=== PATIENT | male | born 1940 | race Caucasian/White ===

== ENCOUNTER 2023-05-04 12:53 | Inpatient (IN) ==
[2023-05-04 13:04] VITALS: BMI 26.4
[2023-05-04] MEDS ORDERED: ATIVAN IVP PRN (13:06)
[2023-05-04] MEDS ORDERED: ZOFRAN 4 MG/2 ML IVP PRN (13:06)
[2023-05-04] MEDS ORDERED: TRANSDERM-SCOP 1.5 MG PATCH TD PRN (13:16)
[2023-05-04 13:29] LABS: HEMATOCRIT 19.2 % (42.0-52.0); MEAN CORPUSCULAR HEMOGLOBIN 28.4 pg (27.0-31.0); MEAN CORPUSCULAR HGB CONC 31.3 (31.8-35.4); PLATELET COUNT 257 10^3/uL (140-440); RDW COEFFICIENT OF VARIATION 18.5 % (11.6-14.8); RED BLOOD COUNT 2.11 10^6/ul (4.70-6.10); WHITE BLOOD COUNT 16.59 K/ul (4.2-10.2)
[2023-05-04 13:38] LABS: ANISOCYTOSIS NOT PRESENT (NOT PRESENT)
[2023-05-04 13:40] LABS: ALBUMIN 2.74 g/dL (3.5-5.0); ALKALINE PHOSPHATASE 73.6 U/L (56-119); ASPARTATE AMINO TRANSFERASE 24.4 U/L (17-59); BILIRUBIN,TOTAL 0.37 mg/dL (0.2-1.3); CALCIUM 7.45 mg/dL (8.4-10.2); CARBON DIOXIDE 15.8 mmol/L (22-30.0); CHLORIDE 103.9 mmol/L (98-107); CREATININE 2.87 mg/dL (0.60-1.10); GLUCOSE 214.3 mg/dL (74-106); POTASSIUM 4.74 mmol/L (3.5-5.1); SODIUM 129.5 mmol/L (134.5-145); TOTAL PROTEIN 5.2 g/dL (6.3-8.2)
[2023-05-04] MEDS: MORPHINE 2 MG/ML SYRINGE IVP PRN ×3 (13:45→18:56)
[2023-05-04 14:13] LABS: BLOOD UREA NITROGEN 107.3 mg/dL (9-20)
--- NOTE | 2023-05-04 15:23 | PCM ---
Date of Service Date Seen by Provider: 05/04/23 Time Seen by Provider: 14:00 Admit Day/Time Admission Date: 05/04/23 Admission Time: 13:00 Reason for Admission Chief Complaint: FAILURE TO THRIVE,PROSTATE CANCER WITH LUNG AND Hospital Provider Hospital Provider: DIAMOND MOSES, [facility] Primary Care Physician Primary Care Physician: PIOTR VARGHESE History of Present Illness History of Present Illness: 82 yo male comes to [facility] from [facility] for impaired balance/mobility due to metastatic cancer. Patient was admitted on 04/20/23 for new onset afib and pneumonia. He was placed on a cardizem drip in the ER and later admitted. He was placed on cefepime for pneumonia. CT scan showed left perihilar mass measure 7.3 x 4.2 cm and bilateral pleural effusions. A thoracentesis was completed on 04/25 with approximately 900mL of straw colored fluid removed. Pathology was negative. Pulmonology states patient would benefit from bronchoscopy but too high risk. BNP was elevated at 2013 and he was started on IV lasix then transitioned to PO. Echo was completed as well and showed grade 1 diastolic dysfunction with EF of 50%. Prednisone taper was also initiated and completed. Cardizem gtt was weaned and patient started on PO and eliquis. Dr. Weiss is his primary oncologist and recommended to complete course of treatment and discharge to rehab with plans for follow-up. Dr. Weiss/Dr. Mchugh stated that patient was not appropriate to start chemo on at this time and he needed to get stronger first. Thus bringing him to [facility] for Swing[facility]. He has remained weak and tired throughout that stay and worked with PT/OT minimally. From 05/02 to today 04/24, patient continued to decline. Initially was refusing to sit on edge of bed or sit in bed. Has continued to refuse any activity with nursing staff throughout the weekend. He has also began to refuse food and drink. 05/03 patient was experiencing sense of impending doom and requested something to relax. Was given IM ativan 1mg x 1 which helped. Discussed situation extensively with family and they wish for patient to be comfortable and for hospice to be consulted. Patient was admitted to inpatient around 1300. CBC and CMP completed per family request. Hemoglobin low at 6 and BUN and Creatinine critical high. Family does not wish for any intervention. [facility] Medical History CHF (congestive heart failure) I50.9 - Heart failure, unspecified (ICD-10) COPD (chronic obstructive pulmonary disease) J44.9 - Chronic obstructive pulmonary disease, unspecified (ICD-10) Diabetes E11.9 - Type 2 diabetes mellitus without complications (ICD-10) DVT (deep venous thrombosis) I82.409 - Acute embolism and thrombosis of unspecified deep veins of unspecified lower extremity (ICD-10) Pleural effusion J90 - Pleural effusion, not elsewhere classified (ICD-10) Dyspnea R06.00 - Dyspnea, unspecified (ICD-10) Hypertension I10 - Essential (primary) hypertension (ICD-10) Metastasis to lung C78.00 - Secondary malignant neoplasm of unspecified lung (ICD-10) Hypocalcemia E83.51 - Hypocalcemia (ICD-10) Heart attack I21.9 - ST elevation (STEMI) myocardial infarction of unspecified site (ICD- 10) Prostate CA C61 - Malignant neoplasm of prostate (ICD-10) Surgical History History of prostate surgery Z98.890 - Other specified postprocedural states (ICD-10) Family History Mother Breast cancer Social History Smoking and tobacco status: Former smoker Alcohol intake: never Allergies Allergies Allergy/AdvReac Type Severity Reaction Status Date / Time No Known Allergies Allergy Verified 03/29/23 16:11 Current Medications Home Medications rosuvastatin 10 mg tablet 10 mg PO DAILY 12/01/21 [History Confirmed 05/04/23 Last Taken 11/30/21] diltiazem HCl 120 mg capsule,extended release 24 hr (Cardizem CD) 120 mg PO DAILY #30 caps 03/29/23 [Rx Confirmed 05/04/23 Last Taken Unknown] abiraterone 250 mg tablet (Zytiga) 1,000 mg PO QAM 05/01/23 [History Confirmed 05/04/23 Last Taken Unknown] alogliptin 12.5 mg tablet 25 mg PO QAM 05/01/23 [History Confirmed 05/04/23 Last Taken Unknown] apixaban 5 mg tablet (Eliquis) 5 mg PO BID 05/01/23 [History Confirmed 05/04/23 Last Taken Unknown] aspirin 81 mg tablet,delayed release (Adult Low Dose Aspirin) 81 mg PO DAILY 05/01/23 [History Confirmed 05/04/23 Last Taken Unknown] budesonide 160 mcg-glycopyr 9 mcg-formot 4.8 mcg/actuation HFA inhaler (Breztri Aerosphere) 2 inh inhalation BID 05/01/23 [History Confirmed 05/04/23 Last Taken Unknown] calcium carbonate 500 mg calcium (1,250 mg) chewable tablet 500 mg PO TID PRN heartburn 05/01/23 [History Confirmed 05/04/23 Last Taken Unknown] ferrous sulfate 325 mg (65 mg iron) tablet (Feosol) 325 mg PO DAILY 05/01/23 [History Confirmed 05/04/23 Last Taken Unknown] furosemide 20 mg tablet (Lasix) 20 mg PO DAILY 05/01/23 [History Confirmed 05/04/23 Last Taken Unknown] guaifenesin 600 mg tablet, extended release 12 hr (Mucinex) 600 mg PO BID 05/01/23 [History Confirmed 05/04/23 Last Taken Unknown] megestrol 400 mg/10 mL (40 mg/mL) oral suspension 400 mg PO DAILY 05/01/23 [History Confirmed 05/04/23 Last Taken Unknown] melatonin 5 mg sublingual BEDTIME PRN insomnia 05/01/23 [History Confirmed 05/04/23 Last Taken Unknown] metoprolol succinate 50 mg tablet,extended release 24 hr (Toprol XL) 50 mg PO DAILY 05/01/23 [History Confirmed 05/04/23 Last Taken Unknown] polyethylene glycol 3350 17 gram oral powder packet 17 g PO DAILY PRN constipation 05/01/23 [History Confirmed 05/04/23 Last Taken Unknown] prednisone 5 mg tablet See Rx Instructions PO .COMPLEX 05/01/23 [History Confirmed 05/04/23 Last Taken Unknown] hydrocodone 5 mg-acetaminophen 325 mg tablet 1 - 2 tab PO Q6H PRN pain 05/02/23 [History Confirmed 05/04/23 Last Taken Unknown] Home Lorazepam (Lorazepam Inj 2 Mg/Ml Disp.Syringe) 2 mg IVP Q2H PRN PRN Reason: Anxiety Morphine Sulfate (Morphine Sulfate 2 Mg/Ml Syringe) 2 mg IVP Q2H PRN PRN Reason: Pain Last Admin: 05/04/23 13:45 Dose: 2 mg Ondansetron HCl (Ondansetron Hcl/Pf 4 Mg/2 Ml Sdv) 4 mg IVP Q6H PRN PRN Reason: Nausea / Vomiting Scopolamine HBr (Scopolamine Hydrobromide 1.5 Mg Patch.Td72) 1 patch TD Q72H PRN PRN Reason: Respiratory secretions Review of Systems Constitutional: Reports Fatigue and Weakness Head: Reports Normocephalic Eyes: Reports No symptoms Ears: Reports No symptoms Nose: Reports No symptoms Mouth: Reports No symptoms Throat: Reports No symptoms Cardiovascular: Reports No symptoms Respiratory: Reports No symptoms Gastrointestinal: Reports No symptoms Genitourinary: Reports No Symptoms Musculoskeletal: Reports No symptoms Endocrine: Reports No symptoms Hematology: Reports No symptoms Immunology: Reports No symptoms Neurological: Reports Weakness Psychiatric: Reports No symptoms Physical examination Most Recent Vital Signs: Most Recent Vital Signs Temperature 97.6 F 05/04/23 12:56 Temperature Source Temporal Artery Scan 05/04/23 12:56 Pulse Rate 85 05/04/23 12:56 Respiratory Rate 24 H 05/04/23 12:56 Blood Pressure Left Arm 111/46 05/04/23 12:56 Blood Pressure Position Supine 05/04/23 12:56 O2 Sat by Pulse Oximetry 94 L 05/04/23 12:56 Oxygen Delivery Method Nasal Cannula 05/04/23 12:56 Oxygen Flow Rate 3 05/04/23 12:56 Height 6 ft 2 in 05/04/23 12:56 Weight 205 lb 8 oz 05/04/23 12:56 Appearance: Positive Ill-Appearing and Thin HEENT: Positive Normocephalic, PERRLA and Other (dry mucosa) Neck: Positive Supple and Midline Trachea Chest/Lungs: Positive Symmetrical With Equal Breath Sounds, Clear to Auscultation Bilaterally and Good Air Movement all 4 Lung [place] Heart: Positive RRR, Pulses Normal, No S3 Auscultated and No S4 Auscultated GI/: Positive Soft, Nontender, Bowel Sounds Normal, No Distention and No Organomegaly Musculoskeletal: Positive Not Examined Extremities: Positive Intact Peripheral Pulses and Stable Joints Without Laxity Neurological: Positive Sensation Intact, Motor intact, Reflexes Intact, Alert and Oriented Labs This Visit Labs This Visit: Labs This Visit 05/04/23 01:23 WBC 16.59 H RBC 2.11 L Hgb 6.0 L Hct 19.2 L MCV 91.0 MCH 28.4 MCHC 31.3 L RDW Coeff of Yoel 18.5 H Plt Count 257 Neutrophils % (Manual) 80.0 H Lymphocytes % (Manual) 10.0 Monocytes % (Manual) 8.0 Eosinophils % (Manual) 2.0 Anisocytosis Not present Sodium 129.5 L Potassium 4.74 Chloride 103.9 Carbon Dioxide 15.8 L D Anion Gap 14.54 BUN 107.3 H* D Creatinine 2.87 H D Estimated GFR (MDRD) 21.00 BUN/Creatinine Ratio 37.38 Glucose 214.3 H Calcium 7.45 L Total Bilirubin 0.37 AST 24.4 ALT 23.0 Alkaline Phosphatase 73.6 Total Protein 5.20 L Albumin 2.74 L Globulin 2.46 Albumin/Globulin Ratio 1.11 Review Statement Review Statement: I have independently reviewed and interpreted the labs/EKGs/imaging that were ordered by the ER provider. I have reviewed all outside records that are available currently in our EMR including imaging/notes/labs from previous visits. Plan Plan: 1. Metastatic Prostatic Cancer - Hospice consult placed, morphine 2 mg Q2H, ativan 2 mg Q2H, scopolomine Q72H prn for secretions, zofran 4mg prn for nausea 2. 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 Acute Renal Failure - no intervention per family 4. Atrial Fibrillation 5. Hypertension DVT Prophylaxis: None, comfort measures Time Spent: Greater than 80 minutes spent with patient, 50% of the time spent with this patient was devoted to counseling and coordination of care. [facility] minutes spent discussing advance care planning. Disposition: Admit to: Med/Surg Inpatient DNR Discussed Plan of Care with Dr. Kristie Davies. Medications Medication Orders: Medications Ordered Category Date Time Status Lorazepam Inj [Ativan] Meds 05/04/23 13:06 Active 2 mg IVP Q2H PRN Morphine Sulfate [Morphine 2 mg/ml Syringe] Meds 05/04/23 13:06 Active 2 mg IVP Q2H PRN Ondansetron HCl/Pf [Zofran 4 mg/2 ml] Meds 05/04/23 13:06 Active 4 mg IVP Q6H PRN Scopolamine Hydrobromide [Transderm-Scop 1.5 mg Patch] Meds 05/04/23 13:16 Active 1 patch TD Q72H PRN
[2023-05-04] MEDS: ATIVAN IM PRN (20:51)
[2023-05-05] MEDS: MORPHINE 2 MG/ML SYRINGE IVP PRN (01:03)
[2023-05-05] MEDS: ATIVAN IM PRN ×2 (03:00→06:34)
[2023-05-05 05:43] VITALS: BP 94/51; PULSE 95; RESP 20; TEMP 97.9
--- NOTE | 2023-05-05 08:01 | PCM.PROG ---
Time of : 07:44 Preliminary Cause of : cardiac arrest Critical Care Time Critical Care Time Critical Care Time: No Total Critical Care Time: 0 Attestation: I was called to the bedside for pronouncement of . This was an expected event per the family. Patient with multiple comorbidities including malignancy. Recently admitted for failure to thrive. Patient noted to be asystole on the ekg monitor at 7:44 AM. I presented to the bedside at 7:55 AM to find multiple family members grieving at the bedside. Auscultated cardiac tones and felt for a pulse for 60 seconds. Confirmed asystole. Patient confirmed .
--- NOTE | 2023-05-05 08:08 | DCSUM ---
Admission Date Admission Date: 05/04/23 Discharge Date Discharge Date: 05/05/23 Admission Diagnosis Admission Diagnosis: 1. Metastatic Prostatic Cancer 2. 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 Acute Renal Failure 4. Atrial Fibrillation 5. Hypertension Discharge Diagnosis Discharge Diagnosis: Time of : 743 on 05/05/23 Cause of : 1. Metastatic prostate cancer 2. 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 Acute renal failure 4. Atrial fibrillation 5. Hypertension Hospital Provider Hospital Provider: Kathryn Betancourt PA-C, [facility] Primary Care Physician Primary Care Physician: PIOTR VARGHESE Summary of History and Physical Summary of History and Physical: 82 yo male comes to [facility] from [facility] for impaired balance/mobility due to metastatic cancer. Patient was admitted on 04/20/23 for new onset afib and pneumonia. He was placed on a cardizem drip in the ER and later admitted. He was placed on cefepime for pneumonia. CT scan showed left perihilar mass measure 7.3 x 4.2 cm and bilateral pleural effusions. A thoracentesis was completed on 04/25 with approximately 900mL of straw colored fluid removed. Pathology was negative. Pulmonology states patient would benefit from bronchoscopy but too high risk. BNP was elevated at 2013 and he was started on IV lasix then transitioned to PO. Echo was completed as well and showed grade 1 diastolic dysfunction with EF of 50%. Prednisone taper was also initiated and completed. Cardizem gtt was weaned and patient started on PO and eliquis. Dr. Weiss is his primary oncologist and recommended to complete course of treatment and discharge to rehab with plans for follow-up. Dr. Weiss/Dr. Mchugh stated that patient was not appropriate to start chemo on at this time and he needed to get stronger first. Thus bringing him to [place] for Swingbed. He has remained weak and tired throughout that stay and worked with PT/OT minimally. From 05/02 to 05/04, patient continued to decline. Initially was refusing to sit on edge of bed or sit in bed. Has continued to refuse any activity with nursing staff throughout the weekend. He has also began to refuse food and drink. 05/03 patient was experiencing sense of impending doom and requested something to relax. Was given IM ativan 1mg x 1 which helped. Discussed situation extensively with family and they wish for patient to be comfortable and for hospice to be consulted. Patient was admitted to inpatient around 1300 on 05/04. Hospital Course Subjective: Patient received ativan and morphine for comfort throughout the night. He passed at 0744 on 05/05/23. Family at bedside. confirmed by ER provider at the [facility] Dr. Han. home contacted by nursing staff. Additional Findings: No cardiac activity on telemetry and confirmed by Dr. Han. Vital Signs: Most Recent Vital Signs Temperature 97.9 F 05/05/23 05:41 Temperature Source Temporal Artery Scan 05/05/23 05:41 Pulse Rate 95 05/05/23 05:41 Respiratory Rate 20 05/05/23 05:41 Blood Pressure 94/51 L 05/05/23 05:41 Blood Pressure Mean 65 05/05/23 05:41 Blood Pressure Left Arm 111/46 05/04/23 12:56 Blood Pressure Location Left Arm 05/05/23 05:41 Blood Pressure Position Supine 05/05/23 05:41 O2 Sat by Pulse Oximetry 90 L 05/05/23 05:41 Oxygen Delivery Method Nasal Cannula 05/05/23 07:10 Oxygen Flow Rate 4 05/05/23 07:10 Height 6 ft 2 in 05/04/23 12:56 Weight 205 lb 8 oz 05/04/23 12:56 Telemetry Type Remote Telemetry 05/05/23 08:04 Telemetry Monitoring Continues 05/05/23 08:04 Irregular Telemetry Rate (Approximate) 100-110 BPM 05/04/23 17:03 Telemetry Heart Rate 0 L 05/05/23 08:04 Telemetry SPO2 81 L 05/05/23 07:00 EKG TN Interval 0.16 05/05/23 07:00 EKG QRS Interval 0.04 L 05/05/23 07:00 Telemetry Strip Reading asystole 05/05/23 08:04 Lab Results Last 24 Hours: 05/04/23 01:23 WBC 16.59 H RBC 2.11 L Hgb 6.0 L Hct 19.2 L MCV 91.0 MCH 28.4 MCHC 31.3 L RDW Coeff of Yoel 18.5 H Plt Count 257 Neutrophils % (Manual) 80.0 H Lymphocytes % (Manual) 10.0 Monocytes % (Manual) 8.0 Eosinophils % (Manual) 2.0 Anisocytosis Not present Sodium 129.5 L Potassium 4.74 Chloride 103.9 Carbon Dioxide 15.8 L D Anion Gap 14.54 BUN 107.3 H* D Creatinine 2.87 H D Estimated GFR (MDRD) 21.00 BUN/Creatinine Ratio 37.38 Glucose 214.3 H Calcium 7.45 L Total Bilirubin 0.37 AST 24.4 ALT 23.0 Alkaline Phosphatase 73.6 Total Protein 5.20 L Albumin 2.74 L Globulin 2.46 Albumin/Globulin Ratio 1.11 Discharge Instructions Discharge Planning: Discharge Planning > [address] Ne Davies. Discharge Medications: Medications at Discharge (Home Meds & RX) rosuvastatin 10 mg tablet 10 mg PO DAILY 12/01/21 diltiazem HCl 120 mg capsule,extended release 24 hr (Cardizem CD) 120 mg PO DAILY #30 caps 03/29/23 abiraterone 250 mg tablet (Zytiga) 1,000 mg PO QAM 05/01/23 alogliptin 12.5 mg tablet 25 mg PO QAM 05/01/23 apixaban 5 mg tablet (Eliquis) 5 mg PO BID 05/01/23 aspirin 81 mg tablet,delayed release (Adult Low Dose Aspirin) 81 mg PO DAILY 05/01/23 budesonide 160 mcg-glycopyr 9 mcg-formot 4.8 mcg/actuation HFA inhaler (Breztri Aerosphere) 2 inh inhalation BID 05/01/23 calcium carbonate 500 mg calcium (1,250 mg) chewable tablet 500 mg PO TID PRN heartburn 05/01/23 ferrous sulfate 325 mg (65 mg iron) tablet (Feosol) 325 mg PO DAILY 05/01/23 furosemide 20 mg tablet (Lasix) 20 mg PO DAILY 05/01/23 guaifenesin 600 mg tablet, extended release 12 hr (Mucinex) 600 mg PO BID 05/01/23 megestrol 400 mg/10 mL (40 mg/mL) oral suspension 400 mg PO DAILY 05/01/23 melatonin 5 mg sublingual BEDTIME PRN insomnia 05/01/23 metoprolol succinate 50 mg tablet,extended release 24 hr (Toprol XL) 50 mg PO DAILY 05/01/23 polyethylene glycol 3350 17 gram oral powder packet 17 g PO DAILY PRN constipation 05/01/23 prednisone 5 mg tablet See Rx Instructions PO .COMPLEX 05/01/23 hydrocodone 5 mg-acetaminophen 325 mg tablet 1 - 2 tab PO Q6H PRN pain 05/02/23 Discharge Plan Discharge Discharge Orders: Discharge Patient (ONCE); Ordered 05/05/23 Ordered By: KATHRYN BETANCOURT Patient Disposition: Did you review [place] [employer] for ALL controlled substances?: No Discussed opioids are addictive and Narcan is available by prescription or from pharmacy.: No Date/Time: 05/05/23 07:44
== END 2023-05-05 10:09 | disposition expired | DRG 723 ==
LOC: MEDSURG B 12:53
PROVIDERS: ADMIT Nurse Practitioner Family; ATTEND Physician Assistant